=== PATIENT | male | born 1990 | race Two or more races ===

== ENCOUNTER 2024-12-31 11:46 | Emergency (ER) | payer MEDICAID ==
[~2024-12-31] VITALS: Ht 182.9 cm; Wt 108.0 kg
[2024-12-31 12:02] VITALS: BP 135/89; PULSE 103; RESP 18; TEMP 98.6; O2SAT 98
== END 2024-12-31 13:35 | disposition home or self-care (01) ==
LOC: EMS 11:46
DX: S92.901A Unspecified fracture of right foot, initial encounter for closed fracture (principal); S90.32XA Contusion of left foot, initial encounter; Z88.6 Allergy status to analgesic agent; W17.89XA Other fall from one level to another, initial encounter; Y93.89 Activity, other specified; Y92.89 Other specified places as the place of occurrence of the external cause; Y99.8 Other external cause status
CPT/HCPCS: 99283